=== PATIENT | female | born 1980 | race Caucasian/White ===

== ENCOUNTER 2021-03-11 17:10 | Emergency (ER) | payer MEDICAID, SELFPAY ==
[2021-03-11 17:18] VITALS: BP 167/95; PULSE 102; RESP 18; TEMP 37.2; O2SAT 93; BMI 34.9
[2021-03-11 18:29] LABS: Basophils % 0.7 %; Hematocrit 38.8 % (37.0-47.0); Hemoglobin 10.9 g/dL (11.5-15.3); Lymphocytes # 1.7 10^3/uL (0.8-4.8); Lymphocytes % 31.8 %; Mean Corpuscular HGB Conc 28.1 g/dL (30.0-36.0); Mean Corpuscular Hemoglobin 19.4 pg (28.0-34.0); Mean Corpuscular Volume 68.9 fL (81-99); Monocytes # 0.8 10^3/uL (0.2-0.9); Monocytes % 14.2 %; Neutrophils # 2.84 10^3/uL (1.8-7.7); Neutrophils % 52.9 %; Nucleated Red Blood Cells % 0 %; Platelet Count 408 10^3/cmm (130-400); Red Blood Count 5.63 10^6/uL (4.1-5.3); Red Cell Distribution Width 20.8 % (12.1-15.1); White Blood Count 5.4 10^3/uL (4.0-10.0)
[2021-03-11 18:53] LABS: Alanine Aminotransferase 13 U/L (0-33); Albumin Level 4.1 g/dL (3.5-5.2); Alkaline Phosphatase 133 IU/L (35-105); Anion Gap 12.6 (5-19); Aspartate Amino Transferase 18 U/L (0-32); Blood Urea Nitrogen 7 mg/dL (6-20); Calcium 8.9 mg/dL (8.5-10.5); Carbon Dioxide 31 mmol/L (22-29); Chloride 97 mmol/L (98-107); Creatine Phosphokinase 161 U/L (26-192); Globulin 4.2 g/dL (1.3-4.6); Glomerular Filtration Rate 110.2 mL/min (90-130); Glucose 108 mg/dL (65-115); Lipase 21 U/L (13-60); Osmolality Calculated 283 mOsm/kg (285-295); Potassium 3.6 mmol/L (3.5-5.1); Sodium 137 mmol/L (136-145); Total Bilirubin 0.2 mg/dL (0.15-1.2); Total Protein 8.3 g/dL (6.6-8.7)
--- NOTE | 2021-03-11 23:29 | ED_ITS ---
HPI - Medical Clearance General Chief complaint: Medical Clearance Stated complaint: pt states very sick from weaning self from a drug Time Seen by Provider: 03/11/21 17:58 Source: patient Mode of arrival: ambulatory Limitations: no limitations History of Present Illness HPI Narrative: Patient is a 40-year-old female who uses heroin and has been trying to wean herself off heroin. She has been off it for about 2 days. She thinks she may be withdrawing. She is having multiple episodes of nausea and vomiting as well as diarrhea. She denies pain otherwise. She would like some help with detoxing. Reason for Medical Clearance: other (to help detox from heroin) Related Information Allergies Allergy/AdvReac Type Severity Reaction Status Date / Time No Known Allergies Allergy Verified 03/11/21 17:18 Course Vital Signs Temperature 98.9 F 03/11/21 17:18 Pulse Rate 102 H 03/11/21 17:18 Respiratory Rate 18 03/11/21 17:18 Blood Pressure 167/95 03/11/21 17:18 Pulse Oximetry 93 03/11/21 17:18 MDM - Medical Clearance MDM Narrative Medical decision making narrative: 40-year-old female patient who wanted help with detoxing from heroin. She however left the hospital AGAINST MEDICAL ADVICE before her labs came back before had a chance to talk to her about it. Medical Records Attestation: I reviewed the patient's medical records. Lab Data Attestation: I reviewed the patient's lab results. Result diagrams: 03/11/21 18:20 03/11/21 18:20 Labs: Lab Results 03/11/21 03/11/21 Range/Units 18:20 18:20 WBC 5.4 (4.0-10.0) 10^3/uL RBC 5.63 H (4.1-5.3) 10^6/uL Hgb 10.9 L (11.5-15.3) g/dL Hct 38.8 (37.0-47.0) % MCV 68.9 L (81-99) fL MCH 19.4 L (28.0-34.0) pg MCHC 28.1 L (30.0-36.0) g/dL RDW 20.8 H (12.1-15.1) % Plt Count 408 H (130-400) 10^3/cmm MPV 9.0 (7.4-10.4) fL Neut % (Auto) 52.9 % Lymph % (Auto) 31.8 % Ashley % (Auto) 14.2 % Eos % (Auto) 0.0 % Baso % (Auto) 0.7 % Neut # (Auto) 2.84 (1.8-7.7) 10^3/uL Lymph # (Auto) 1.7 (0.8-4.8) 10^3/uL Ashley # (Auto) 0.8 (0.2-0.9) 10^3/uL Eos # (Auto) 0.0 (0.0-0.8) 10^3/uL Baso # (Auto) 0.0 (0.0-0.1) 10^3/uL Nucleated RBC % (auto) 0 % Nucleated RBCs # 0.0 /100WBC Sodium 137 (136-145) mmol/L Potassium 3.6 (3.5-5.1) mmol/L Chloride 97 L (98-107) mmol/L Carbon Dioxide 31 H (22-29) mmol/L Anion Gap 12.6 (5-19) BUN 7 (6-20) mg/dL Creatinine 0.6 (0.5-0.9) mg/dL GFR Calculation 110.2 (90-130) mL/min Glucose 108 (65-115) mg/dL Calculated Osmolality 283 L (285-295) mOsm/kg Calcium 8.9 (8.5-10.5) mg/dL Total Bilirubin 0.2 (0.15-1.2) mg/dL AST 18 (0-32) U/L ALT 13 (0-33) U/L Alkaline Phosphatase 133 H (35-105) IU/L Creatine Kinase 161 (26-192) U/L Total Protein 8.3 (6.6-8.7) g/dL Albumin 4.1 (3.5-5.2) g/dL Globulin 4.2 (1.3-4.6) g/dL Lipase 21 (13-60) U/L Discharge Plan Discharge Patient Disposition: Left Against Medical Advice Clinical Impression: Heroin addiction, Desire for detoxification ROS General Reports: 10 or more systems reviewed and unremarkable except in HPI and below Physical Exam Const COMMON NORMALS: no acute distress, average body habitus, patient oriented x3, no limitations, healthy appearing, alert and well nourished [facility] COMMON NORMALS: normocephalic, atraumatic and moist oral mucous membranes HEAD & SCALP: normocephalic and atraumatic Eye COMMON NORMALS: Equal, round and reactive pupils present, EOMs intact b ilaterally, conjunctivae normal and no scleral icterus CONJUNCTIVA: Yes conjunctivae normal PUPIL: Yes Equal, round and reactive pupils present Neck/C-Spine COMMON NORMALS: no meningeal signs and no JVD Resp COMMON NORMALS: normal respiratory effort, No retractions, No use of accessory muscles, clear to auscultation bilaterally and percussion normal AUSCULTATION: clear to auscultation bilaterally PERCUSSION: percussion normal Cardio COMMON NORMALS: no JVD, regular rate, regular rhythm, S1 normal heart sound present, S2 normal heart sound present, No gallops present (Cardio), No clicks present (Cardio), No murmurs present (Cardio), No rub (Cardio) and Peripheral pulses 2+ throughout RATE: regular rate RHYTHM: regular rhythm HEART SOUNDS: S1 normal heart sound present and S2 normal heart sound present PERIPHERAL PULSES: Peripheral pulses 2+ throughout GI COMMON NORMALS: Normal to inspection, nondistended, normoactive bowel sounds present, Soft to palpation, non-tender, No hepatosplenomegaly present, no masses and no bruits PALPATION: Yes Soft to palpation and Yes No hepatosplenomegaly present Extremity COMMON NORMALS: normal to inspection, full ROM, capillary refill normal, no calf tenderness and no pedal edema Neuro COMMON NORMALS: patient oriented x3 SENSORIUM/ORIENTATION: Yes alert MENINGEAL SIGNS: Yes no meningeal signs Skin COMMON NORMALS: no rashes or lesions noted, no wounds, turgor normal, no jaundice, no petechiae and no mottling GENERAL SKIN EXAM: no rashes or lesions noted and turgor normal
== END 2021-03-11 18:39 | disposition left against medical advice (07) ==
PROVIDERS: Emergency Provider Family Medicine
DX: F11.20 Opioid dependence, uncomplicated (principal); Z53.21 Procedure and treatment not carried out due to patient leaving prior to being seen by health care provider
CPT/HCPCS: 80053; 82550; 83690; 85025; 99282

== ENCOUNTER 2022-07-12 09:17 | Emergency (ER) | payer MEDICAID, SELFPAY ==
[2022-07-12 09:21] VITALS: BP 176/125; PULSE 118; RESP 16; TEMP 36.3; O2SAT 95; BMI 44.9
--- NOTE | 2022-07-12 09:21 | XR_ITS ---
WS: [id number] Portable AP upright chest, 07/12/2022 Clinical Data: dyspnea/cough Comparison: None. Findings: No nodules, masses or effusions are seen. The heart is normal. The pulmonary vascularity is not increased. No pneumonia or pneumothorax is seen. Monitor leads are on the chest wall. XR/XR chest 1V portable [id number] Impression: Negative chest.
--- NOTE | 2022-07-12 09:22 | W.ED.SOB ---
HPI - SOB/Dyspnea General: Chief Complaint: Shortness of Breath/Dyspnea Stated Complaint: respiratory distress Time Seen by Provider: 07/12/22 09:19 Source: patient Mode of arrival: EMS History of Present Illness: HPI Narrative: 41-year-old female presents emergency room with complaints of shortness of breath and wheezing cough and diarrhea for the last 3 days. She has had fever myalgias as well. She does not have any documented history of COPD or asthma. She does smoke. She denies any chest pain or shortness of breath cough has been nonproductive no other household contacts have been ill recently. Denies chest pain cough is been nonproductive MD elicited complaint: shortness of breath and cough Onset (ago): day(s) (3) Timing: constant Severity: mild Exacerbating factors: exertion and coughing Relieving factors: rest Associated symptoms: Reports chest congestion, chest pain, cough and fever(s); Deny abdominal pain, diaphoresis, dizziness, extremity pain, hemoptysis, lightheadedness, myalgias, nausea, orthopnea, palpitations, paresthesias, polydipsia, polyuria, rash, syncope or vomiting Treatment prior to arrival: none Related Data: Home oxygen amount: none Review of Systems Const: Reports: fever(s), chills, fatigue and malaise; Denies: diaphoresis ENMT: Denies: throat pain, ear or mastoid pain, nasal discharge or nasal congestion Card: Reports: chest pain; Denies: palpitations, lightheadedness, syncope or orthopnea Resp: Reports: dyspnea, non-productive cough, wheezing and chest congestion; Denies: productive cough or hemoptysis GI: Denies: abdominal pain, nausea or vomiting : Denies: flank pain, difficulty voiding, dysuria, urinary frequency or urinary urgency Musc: Denies: extremity pain Skin/Breast: Denies: rash or pruritus Neuro: Denies: dizziness Endo: Denies: polyuria or polydipsia PFSH ED PFSH: Medical History (Updated 07/12/22 @ 11:15 by Ramone Amezcua DO) Obesity Surgical History (Updated 07/12/22 @ 09:51 by Ramone Amezcua DO) No pertinent past surgical history Social History (Updated 07/12/22 @ 09:51 by Ramone Amezcua DO) Smoking and tobacco status: current every day smoker Female Reproductive History: Date of last menstrual period: 03/08/21 Physical Exam Const: COMMON NORMALS: no acute distress GENERAL APPEARANCE: cooperative and comfortable ORIENTATION/CONSCIOUSNESS: Yes awake, Yes oriented to person, Yes oriented to place and Yes oriented to time HENMT: COMMON NORMALS: normocephalic, atraumatic and hearing grossly normal bilaterally HEAD & SCALP: normocephalic and atraumatic Resp: COMMON NORMALS: normal respiratory effort, No retractions and No use of accessory muscles AUSCULTATION: rhonchi and wheezes Cardio: COMMON NORMALS: regular rhythm and No murmurs present (Cardio) RATE: tachycardic RHYTHM: regular rhythm GI: COMMON NORMALS: Soft to palpation and No hepatosplenomegaly present AUSCULTATION: Yes normoactive bowel sounds PALPATION: Yes Soft to palpation, No Tenderness to palpation present (GI), No Guarding due to palpation present (GI) and Yes No hepatosplenomegaly present Extremity: COMMON NORMALS: normal to inspection, capillary refill normal, no clubbing, cyanosis or edema, no calf tenderness and no pedal edema Neuro: SENSORIUM/ORIENTATION: Yes oriented to person, Yes oriented to place and Yes oriented to time Skin: COMMON NORMALS: no rashes or lesions noted GENERAL SKIN EXAM: no rashes or lesions noted Course Vital Signs: Vital signs: Vital Signs Temperature 97.4 F L 07/12/22 09:21 Pulse Rate 102 H 07/12/22 11:48 Respiratory Rate 18 07/12/22 11:48 Blood Pressure 152/96 07/12/22 11:48 Pulse Oximetry 98 07/12/22 11:48 Oxygen Delivery Me thod 07/12/22 10:38 MDM - SOB/Dyspnea Medical Decision Making Labs and imaging reviewed. Patient has no significant finding of PE or pneumonia. Suspect viral infection. Supportive cares Tylenol and ibuprofen as needed and follow-up with primary care. Return to the emergency room has worsening shortness of breath or congestion symptoms. Medical Records I reviewed the patient's medical records. Lab Data I reviewed the patient's lab results. : 07/12/22 10:05 07/12/22 10:05 Labs/Radiology: Radiology Impressions Chest X-Ray 07/12/22 09:21 Impression: Negative chest. Laboratory Results WBC 10.6 10^3/uL (4.0-10.0) H 07/12/22 10:05 RBC 4.61 10^6/uL (4.1-5.3) 07/12/22 10:05 Hgb 9.7 g/dL (11.5-15.3) L 07/12/22 10:05 Hct 33.9 % (37.0-47.0) L 07/12/22 10:05 MCV 73.5 fl (81-99) L 07/12/22 10:05 MCH 21.0 pg (28.0-34.0) L 07/12/22 10:05 MCHC 28.6 g/dL (30.0-36.0) L 07/12/22 10:05 RDW 18.0 % (12.1-15.1) H 07/12/22 10:05 Plt Count 370 10^3/cmm (130-400) 07/12/22 10:05 MPV 9.1 fL (7.4-10.4) 07/12/22 10:05 Neut % (Auto) 69.5 % 07/12/22 10:05 Lymph % (Auto) 20.2 % 07/12/22 10:05 [place] % (Auto) 6.1 % 07/12/22 10:05 Eos % (Auto) 3.0 % 07/12/22 10:05 Baso % (Auto) 0.6 % 07/12/22 10:05 Neut # (Auto) 7.38 10^3/uL (1.8-7.7) 07/12/22 10:05 Lymph # (Auto) 2.1 10^3/uL (0.8-4.8) 07/12/22 10:05 [place] # (Auto) 0.7 10^3/uL (0.2-0.9) 07/12/22 10:05 Eos # (Auto) 0.3 10^3/uL (0.0-0.8) 07/12/22 10:05 Baso # (Auto) 0.1 10^3/uL (0.0-0.1) 07/12/22 10:05 Nucleated RBC % (auto) 0 % 07/12/22 10:05 Nucleated RBCs # 0.0 /100WBC 07/12/22 10:05 Sodium 138 mmol/L (136-145) 07/12/22 10:05 Potassium 3.9 mmol/L (3.5-5.1) 07/12/22 10:05 Chloride 101 mmol/L (98-107) 07/12/22 10:05 Carbon Dioxide 30 mmol/L (22-29) H 07/12/22 10:05 Anion Gap 10.9 (5-19) 07/12/22 10:05 BUN 8 mg/dL (6-20) 07/12/22 10:05 Creatinine 0.6 mg/dL (0.5-0.9) 07/12/22 10:05 GFR Calculation 109.6 mL/min (90-130) 07/12/22 10:05 Glucose 143 mg/dL (65-115) H 07/12/22 10:05 Calculated Osmolality 287 mOsm/kg (285-295) 07/12/22 10:05 Calcium 8.8 mg/dL (8.5-10.5) 07/12/22 10:05 Total Bilirubin 0.2 mg/dL (0.15-1.2) 07/12/22 10:05 AST 12 U/L (0-32) 07/12/22 10:05 ALT 13 U/L (0-33) 07/12/22 10:05 Alkaline Phosphatase 143 U/L (35-105) H 07/12/22 10:05 Total Protein 7.3 g/dL (6.6-8.7) 07/12/22 10:05 Albumin 3.5 g/dL (3.5-5.2) 07/12/22 10:05 Globulin 3.8 g/dL (1.3-4.6) 07/12/22 10:05 Coronavirus 229E (PCR) Not detected (NOT DETECT) 07/12/22 10:01 SARS-CoV-2 (PCR) Not detected (NOT DETECT) 07/12/22 10:01 Discharge Plan Discharge Patient Disposition: Home Clinical Impression: Suspected 2019-nCoV infection Condition: Stable Prescriptions: New Medrol (Reymundo) 4 mg tablets,dose pack See Rx Instructions .ROUTE .COMPLEX Qty: 21 0RF Rx Instructions: orally per package directions albuterol sulfate 90 mcg/actuation HFA aerosol inhaler 2 inh INHALATION Q4H PRN (Reason: shortness of breath or wheezing) Qty: 18 0RF Discharge Orders: Discharge ED (Routine); Ordered 07/12/22 Ordered By: Ramone Amezcua Discharge Diet: Usual diet Discharge Activity: Increase activity as tolerated Patient Instructions: COVID-19 (Coronavirus Disease 2019) (ED), Opioid Safety, Pain Management Stand Alone Forms: Work/School Release Coding Level of Care Code ED Porcel[employer]er for Chg Fwd Exam Detailed
--- NOTE | 2022-07-12 09:30 | ECG_ITS ---
[facility] Test Date: 2022-07-12 Pat Name: Janet Ohara Department: Room: Gender: Female Measurement Supervisor: : 1980 Requested By: Ramone Whittington Order Number: [id number] Rose MD: Mendy Avelar M.D. Measurements Intervals [place] Rate: 111 P: 64 DC: 140 QRS: 75 QRSD: 86 T: 50 QT: 344 QTc: 469 Interpretive Statements SINUS TACHYCARDIA POSSIBLE RIGHT ATRIAL ENLARGEMENT [0.25mV P-WAVE] LEFT ATRIAL ENLARGEMENT [-0.15mV P-WAVE IN V1/V2] POSSIBLE RIGHT VENTRICULAR CONDUCTION DELAY [RSR (QR) IN V1/V2] NONSPECIFIC T-WAVE ABNORMALITY No previous ECG available for comparison Electronically Signed On 07-12-2022 16:49:18 CDT by Mendy Avelar M.D. [id number] f
[2022-07-12] MEDS: dexamethasone 10 mg/mL INJ 6 MG IM (09:56)
[2022-07-12 10:12] LABS: Basophils # 0.1 10^3/uL (0.0-0.1); Basophils % 0.6 %; Eosinophils # 0.3 10^3/uL (0.0-0.8); Hematocrit 33.9 % (37.0-47.0); Hemoglobin 9.7 g/dL (11.5-15.3); Lymphocytes # 2.1 10^3/uL (0.8-4.8); Lymphocytes % 20.2 %; Mean Corpuscular HGB Conc 28.6 g/dL (30.0-36.0); Mean Corpuscular Volume 73.5 fl (81-99); Mean Platelet Volume 9.1 fL (7.4-10.4); Monocytes # 0.7 10^3/uL (0.2-0.9); Monocytes % 6.1 %; Neutrophils # 7.38 10^3/uL (1.8-7.7); Neutrophils % 69.5 %; Nucleated Red Blood Cells % 0 %; Platelet Count 370 10^3/cmm (130-400); Red Blood Count 4.61 10^6/uL (4.1-5.3); White Blood Count 10.6 10^3/uL (4.0-10.0)
[2022-07-12 10:36] LABS: Alanine Aminotransferase 13 U/L (0-33); Albumin Level 3.5 g/dL (3.5-5.2); Alkaline Phosphatase 143 U/L (35-105); Anion Gap 10.9 (5-19); Aspartate Amino Transferase 12 U/L (0-32); Blood Urea Nitrogen 8 mg/dL (6-20); Calcium 8.8 mg/dL (8.5-10.5); Carbon Dioxide 30 mmol/L (22-29); Chloride 101 mmol/L (98-107); Globulin 3.8 g/dL (1.3-4.6); Glomerular Filtration Rate 109.6 mL/min (90-130); Glucose 143 mg/dL (65-115); Osmolality Calculated 287 mOsm/kg (285-295); Potassium 3.9 mmol/L (3.5-5.1); Sodium 138 mmol/L (136-145); Total Bilirubin 0.2 mg/dL (0.15-1.2); Total Protein 7.3 g/dL (6.6-8.7)
[2022-07-12] MEDS: albuterol 8 gm MDI 2 PUFF INHALATION (10:36)
[2022-07-12 10:38] VITALS: PULSE 100; RESP 18; O2SAT 96
[2022-07-12 10:39] VITALS: PULSE 100
[2022-07-12 11:48] VITALS: BP 152/96; PULSE 102; RESP 18; O2SAT 98
[2022-07-12 11:54] LABS: Adenovirus Not Detected (NOT DETECT); Chlamydia Pneumoniae Not Detected (NOT DETECT); Coronavirus 229E,HKU1,NL63,OC4 Not Detected (NOT DETECT); Human Metapneumovirus Not Detected (NOT DETECT); Human Rhinovirus/Enterovirus Not Detected (NOT DETECT); Influenza A Not Detected (NOT DETECT); Influenza A H1 Not Detected (NOT DETECT); Influenza A H1-2009 Not Detected (NOT DETECT); Influenza A H3 Not Detected (NOT DETECT); Influenza B Not Detected (NOT DETECT); Mycoplasma Pneumoniae Not Detected (NOT DETECT); Parainfluenza Virus Type 1 Not Detected (NOT DETECT); Parainfluenza Virus Type 2 Not Detected (NOT DETECT); Parainfluenza Virus Type 3 Not Detected (NOT DETECT); Parainfluenza Virus Type 4 Not Detected (NOT DETECT); Respiratory Syncytial Virus A Not Detected (NOT DETECT); Respiratory Syncytial Virus B Not Detected (NOT DETECT); SARS-COV-2 Not Detected (NOT DETECT)
== END 2022-07-12 11:49 | disposition home or self-care (01) ==
PROVIDERS: Emergency Provider Family Medicine
DX: Z20.822 Contact with and (suspected) exposure to COVID-19 (principal); F17.210 Nicotine dependence, cigarettes, uncomplicated
CPT/HCPCS: 71045; 80053; 85025; 87635; 93005; 94640; 99285; J1100; J3535

== ENCOUNTER 2022-07-29 09:34 | Emergency (ER) | payer MEDICAID, SELFPAY ==
[2022-07-29 09:56] VITALS: BP 160/84; PULSE 119; RESP 22; TEMP 36.6; O2SAT 95
--- NOTE | 2022-07-29 10:49 | USCV_ITS ---
Janet Ohara Age: 41 Gender: F : 1980 Exam Date: 07/29/2022 11:03 Ordering Phys: Iván Kay Technologist: KAROLINE [place] [facility] [place]ication: LEG SWELLING AND PAIN X 3 DAYS HISTORY: Lower extremity swelling. Lower extremity pain. PROCEDURES: Venous duplex imaging was performed in bilateral lower extremities. The following venous structures were evaluated: common femoral vein, profunda vein, proximal portion of the greater saphenous vein, superficial femoral vein, and the popliteal vein. In addition, the posterior tibial and peroneal trunk were evaluated. Bilaterally, the common femoral, superficial femoral, profunda femoral, popliteal, posterior tibial, greater saphenous veins, and the peroneal trunk were identified and interrogated in the standard fashion. These veins were found to be easily compressible with spontaneous blood flow. No evidence of insufficiency or thrombus noted. FINDINGS: Examination was technically limited due to body habitus. No evidence of DVT seen in any vessel visualized at this time. CONCLUSIONS No evidence of right lower extremity DVT. No evidence of left lower extremity DVT. Oneil Solomon MD (Electronically Signed) Final Date: 29 July 2022 16:36 S
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
[2022-07-29] MEDS: HYDROcodone-acetaminophen 5-325 mg Tablet 1 TAB PO (11:33)
== END 2022-07-29 13:52 | disposition home or self-care (01) ==
PROVIDERS: Emergency Provider Physician Assistant
DX: R60.0 Localized edema (principal); F17.210 Nicotine dependence, cigarettes, uncomplicated
CPT/HCPCS: 93970; 99284